=== PATIENT | male | born 1950 | race Caucasian/White ===

== ENCOUNTER 2016-07-21 20:47 | Emergency (ER) | payer BC ==
[~2016-07-21] VITALS: Ht 170.2 cm; Wt 72.6 kg
[~2016-07-21 20:47] MED LIST: ASPIR 8181 MG PO; ASPIRIN325 PO; CRESTOR10 MG PO; EFFIENT10 MG PO; LISINOPRIL5 MG PO; NOHOMEMEDICATIONS; NORVASC5 MG PO
[2016-07-21] MEDS ORDERED: NORVASC5 MG PO (20:52)
== END 2016-07-21 21:55 | disposition home or self-care (01) ==
LOC: ER 20:47
DX: R04.0 Epistaxis (principal); I10 Essential (primary) hypertension; E78.5 Hyperlipidemia, unspecified; F17.210 Nicotine dependence, cigarettes, uncomplicated